=== PATIENT | female | born 1945 | race Caucasian/White ===

== ENCOUNTER 2020-12-22 09:50 | Observation (INO) ==
[2020-12-22] MEDS ORDERED: Ondansetron 4 MG/2 ML VIAL IVP PRN ×2 (12:27→21:42)
[2020-12-22] MEDS ORDERED: Naloxone 0.4 MG/ML INJ IVP PRN ×2 (12:27→21:42)
[2020-12-22] MEDS ORDERED: Melatonin 3 MG TABLET PO PRN ×2 (12:27→21:42)
[2020-12-22 14:36] LABS: Hematocrit 42.8 % (35.3-44.9); Hemoglobin 13.5 g/dL (11.5-15.4); Immature Granulocytes % 0.5 % (0-4); Lymphocytes % 6.9 %; Mean Corpuscular HGB Conc 31.5 g/dL (31.6-35.5); Mean Corpuscular Hemoglobin 30.3 pg (28.0-33.3); Mean Platelet Volume 11.3 fL (9.4-12.4); Platelet Count 162 K/mcL (140-400); Red Blood Count 4.46 M/mcL (3.82-4.97); Red Cell Distribution Width 13.2 % (11.5-14.5); Segmented Neutrophils % 82.5 %
[2020-12-22 14:37] LABS: Basophils % 0.1 %; Lymphocytes # 0.7 K/mcL (0.6-4.6); Neutrophils # 8.2 K/mcL (1.6-8.9)
[2020-12-22 14:55] LABS: BUN/Creatinine Ratio 27 (6-26); Blood Urea Nitrogen 19 mg/dL (8-23); Calcium 9.1 mg/dL (8.6-10.3); Carbon Dioxide 26 mEq/L (23-29); Chloride 106 mEq/L (98-107); Glucose 126 mg/dL (70-105); Osmolality,Calculated 294 (280-300); Potassium 4.2 mEq/L (3.5-5.1); Sodium 140 mEq/L (136-145); eGFR For African Americans > 60 (> 60); eGFR For Non-African Americans > 60 (> 60)
[2020-12-22 14:56] LABS: Magnesium 2.1 mg/dL (1.6-2.6); Phosphorous 3.1 mg/dL (2.7-4.5)
[2020-12-22] MEDS ORDERED: *HR* LORazepam 0.5 MG TABLET PO PRN ×2 (15:08→21:42)
[2020-12-22] MEDS ORDERED: D5% in Water 1,000 ML IVC PRN ×2 (15:09→21:42)
[2020-12-22] MEDS ORDERED: *HR* Dextrose 50 % in Water (Vial) 50 ML VIAL IVP PRN ×2 (15:09→21:42)
[2020-12-22] MEDS ORDERED: Dextrose Gel 15 GM/37.5 ML TUBE PO PRN ×4 (15:09→21:42)
[2020-12-22 16:32] LABS: Prothrombin Time 12.1 Seconds (9.4-12.1)
[2020-12-22] MEDS ORDERED: Lidocaine HCL 4 ML Topical Solution (Laryng-O-Jet Kit Sterile Pak) TP ONE (18:00)
[2020-12-22] MEDS ORDERED: Lidocaine/EPI 1:100k 1% 50 ML VIAL ONE (18:00)
[2020-12-22] MEDS ORDERED: *HR* FentaNYL (PF) 100 MCG/2 ML VIAL ONE ×2 (18:02→19:21)
[2020-12-22] MEDS ORDERED: *HR* Midazolam HCl 2 MG/2 ML VIAL ONE (18:02)
[2020-12-22] MEDS ORDERED: Lidocaine -MPF 2% 2 ML VIAL ONE (18:03)
[2020-12-22] MEDS ORDERED: *HR* Propofol 200 MG/20 ML VIAL IVP ONE (18:03)
[2020-12-22] MEDS ORDERED: Ondansetron 4 MG/2 ML VIAL ONE (18:05)
[2020-12-22] MEDS ORDERED: Acetaminophen IV 1,000 MG/100 ML BAG IVPB ONE (18:05)
[2020-12-22] MEDS: ceFAZolin 2,000 MG in 0.9 % Sodium Chloride 100 ML IVPB SCH (23:15)
[2020-12-23 03:20] LABS: Basophils % 0.1 %; Hematocrit 35.8 % (35.3-44.9); Immature Granulocytes % 0.3 % (0-4); Lymphocytes # 0.3 K/mcL (0.6-4.6); Lymphocytes % 3.5 %; Mean Corpuscular Hemoglobin 30.1 pg (28.0-33.3); Mean Platelet Volume 11.7 fL (9.4-12.4); Monocytes # 0.6 K/mcL (0.0-1.3); Monocytes % 6.1 %; Neutrophils # 8.2 K/mcL (1.6-8.9); Platelet Count 129 K/mcL (140-400); Red Blood Count 3.69 M/mcL (3.82-4.97); Red Cell Distribution Width 13.2 % (11.5-14.5); White Blood Count 9.1 K/mcL (4.3-11.1)
[2020-12-23 03:21] LABS: Hemoglobin 11.1 g/dL (11.5-15.4)
[2020-12-23 03:40] LABS: BUN/Creatinine Ratio 23 (6-26); Blood Urea Nitrogen 17 mg/dL (8-23); Calcium 7.9 mg/dL (8.6-10.3); Carbon Dioxide 23 mEq/L (23-29); Chloride 110 mEq/L (98-107); Glucose 154 mg/dL (70-105); Magnesium 1.8 mg/dL (1.6-2.6); Osmolality,Calculated 293 (280-300); Potassium 4.3 mEq/L (3.5-5.1); Sodium 139 mEq/L (136-145); eGFR For African Americans > 60 (> 60); eGFR For Non-African Americans > 60 (> 60)
[2020-12-23] MEDS: ceFAZolin 2,000 MG in 0.9 % Sodium Chloride 100 ML IVPB SCH (07:40)
[2020-12-23] MEDS ORDERED: Multivit/Ca/Min/Fe/FA 1 TAB TABLET PO SCH ×2 (09:00)
[2020-12-23 11:00] VITALS: BP 139/62; PULSE 84; TEMP 98.3; O2SAT 98
== END 2020-12-23 12:59 | disposition home or self-care (01) ==
LOC: 3NENU → SUATTDRO 10:46
PROVIDERS: ADMIT Internal Medicine; ATTEND Family Medicine